=== PATIENT | female | born 1980 | race Caucasian/White ===

== ENCOUNTER 2021-08-06 20:28 | Emergency (ER) | payer BC ==
[2021-08-06] MEDS ORDERED: HYDROCODONE/APAP 10/325 TAB ONE (22:00)
--- NOTE | 2021-08-06 23:34 | EDPHYS ---
Physician Documentation [facility] Name: Bette Ames Age: 40 yrs Sex: Female : 1980 Arrival Date: 08/06/2021 Time: 20:34 Bed 9 Private MD: ED Physician Jey Guevara HPI: 08/06 23:28 This 40 yrs old Female presents to ER via Ambulatory with complaints of rn Finger Injury. 23:28 Mechanism of injury: " Jamming". Associated injuries: The patient sustained Right fifth rn digit of hand. 23:29 Onset: The symptoms/episode began/occurred yesterday. The patient has not experienced rn similar symptoms in the past. The patient has not recently seen a physician. Patient reports at work yesterday and jammed her finger while moving boxes. Denies crush injury. Reports sent to [facility] for work-related injury and told has cellulitis and given antibiotics. They were told x-rays were okay without fracture or dislocation. Still having significant pain to right fifth digit of hand. No fever. 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 dc2 Historical: - Allergies: 21:20 No Known Allergies; dc2 - Home Meds: 22:00 budesonide 160mcg oral cpER 1 cap once daily [Active]; levothyroxine 75 mcg cap 1 cap dc2 once daily (Last Dose: 08/06/2021 07:00) [Active]; metformin 500 mg Oral tab 1 tab daily for weight loss [Active]; Probiotic 10 billion cell oral cap daily [Active]; CoQ-10 200mg oral cap daily [Active]; Super B-50 Complex oral cap daily [Active]; Vitamin D-3 with Aloe 120-1,000-10 mg-unit-mg oral tab daily [Active]; multivitamin oral cap daily [Active]; - Immunization history:: Adult Immunizations up to date, Client reports receiving the Efrain \\T\\ Efrain single-dose vaccine. Date received July 09, 2021. - Social history:: Patient/guardian denies using alcohol, street drugs, tobacco products, Smoking status: Patient/guardian denies using alcohol, street drugs, IV drugs, tobacco products. - Family history:: not pertinent. - Hospitalizations: : No recent hospitalization is reported. - Coronavirus screen:: The patient has NOT traveled to [place] in the past 14 days. The patient has NOT had contact with known/suspected case of Coronavirus? Proceed with normal triage procedures. ROS: 23:29 Constitutional: Negative for fever, chills, and weight loss, MS/Extremity: Positive rn injury and swelling to right fifth finger Skin: Negative for injury, rash, and discoloration, Neuro: Mild tingling to right hand and throbbing pain. Exam: 23:29 Constitutional: This is a well developed, well nourished patient who is awake, alert, rn appears uncomfortable Skin: Warm, dry MS/ Extremity: Pulses equal, no cyanosis. Neurovascular intact. Painful flexion and extension of right fifth finger. No gross deformity. No fluctuance. No streaking proximally. No open wounds. Neuro: Awake and alert, GCS 15 Vital Signs: 21:10 BP 114 / 50; Pulse 67; Resp 19; Temp 98.2; Pulse Ox 100% ; Weight 86.18 kg; Height 5 dc2 ft. 0 in. (152.40 cm); Pain 10/10; 23:00 BP 108 / 53; Pulse 85; Resp 17; Temp 99.2(O); Pulse Ox 100% ; Pain 6/10; dc2 21:10 Body Mass Index 37.11 (86.18 kg, 152.40 cm) dc2 MDM: 21:25 Patient medically screened. rn 23:29 Differential diagnosis: extremity fracture. Data reviewed: vital signs, nurses notes, rn radiologic studies, plain films, and as a result, I will discharge patient. Counseling: I had a detailed discussion with the patient and/or guardian regarding: the historical points, exam findings, and any diagnostic results supporting the discharge/admit diagnosis, radiology results, the need for outpatient follow up, to return to the emergency department if symptoms worsen or persist or if there are any questions or concerns that arise at home. Response to treatment: the patient's symptoms have markedly improved after treatment, and as a result, I will discharge patient. Special discussion: I discussed with the patient/guardian in detail that at this point there is no indication for admission to the hospital. It is understood, however, that if the symptoms persist or worsen the patient needs to return immediately for re-evaluation. Further emergent ED testing is not indicated at this point in time. I discussed with the patient/guardian in detail the need to arrange with the PCP or specialist further outpatient testing, MRI. ED course: Patient markedly improved, after pain medication, sitting in bed sleeping. X-ray without gross fracture or dislocation. Discussion with patient regarding possible tendon or ligamentous injury and need for MRI if continues to have problems. Return precautions given and understood.. 08/06 21:31 Order name: XRAY Hand RIGHT 3 View rn Administered Medications: 21:37 Drug: Aroda (HYDROcodone-acetaminophen) 10 mg-325 mg 1 tabs Route: PO; ld1 22:11 Follow up: Response: No adverse reaction ld1 22:12 Follow up: Response: Pain is decreased dc2 Disposition Summary: 08/06/21 23:51 Discharge Ordered Location: Home(08/06/21 23:51) rn Problem: new(08/06/21 23:51) rn Symptoms: have improved(08/06/21 23:51) rn Condition: Stable(08/06/21 23:51) rn Diagnosis - Contusion of right little finger without damage to nail(08/06/21 23:51) rn - Other sprain of right little finger(08/06/21 23:51) rn Followup: rn - With: Private Physician - When: As needed - Reason: Recheck today's complaints, Re-evaluation by your physician Discharge Instructions: - Finger Sprain, Adult rn - Discharge Summary Sheet ld1 Forms: - Medication Reconciliation Form rn - Thank You Letter rn - Antibiotic assistant city attorney - Prescription Opioid Use rn - Work release form ld1 Signatures: Dispatcher [employer] EDJey Mendez MD MD rn Dibbern, Lauren, RN RN ld1 Virginia Treadwell RN RN dc2 Corrections: (The following items were deleted from the chart) 23:31 23:28 Associated injuries: The patient sustained Right fifth digit, rn rn 23:42 23:33 Home rn dc2 23:42 23:33 new rn dc2 23:42 23:33 have improved rn dc2 23:42 23:33 Stable rn dc2 23:42 23:33 Contusion of right little finger without damage to nail rn dc2 23:42 23:33 Other sprain of right little finger rn dc2
--- NOTE | 2021-08-06 23:34 | ER ---
Nurse's Notes [facility] Name: Bette Ames Age: 40 yrs Sex: Female : 1980 Arrival Date: 08/06/2021 Time: 20:34 Bed 9 Private MD: Diagnosis: Contusion of right little finger without damage to nail;Other sprain of right little finger Presentation: 08/06 21:10 Chief complaint: Patient states: I hurt my Right hand last night at work around 3am, dc2 went to clinic today where they did an x ray and told me it was cellulitis, now my fingers are swollen and the pinky is worse. 21:10 Coronavirus screen: Vaccine status: Patient reports receiving the 2nd dose of the covid dc2 vaccine. Date July 09, 2021 Client denies travel out of the [place] in the last 14 days. Ebola Screen: Patient negative for fever greater than or equal to 101.5 degrees Fahrenheit, and additional compatible Ebola Virus Disease symptoms Patient denies exposure to infectious person. Patient denies travel to an Ebola-affected area in the 21 days before illness onset. Risk Assessment: Do you want to hurt yourself or someone else? Patient reports no desire to harm self or others. Onset of symptoms was August 06, 2021 at 03:00. Care prior to arrival: Xray at previous clinic and finger splint. 21:10 Method Of Arrival: Ambulatory dc2 21:10 Acuity: CRISTELA 4 dc2 21:10 Initial Sepsis Screen: Does the patient have a suspected source of infection? No. dc2 Patient's initial sepsis screen is negative. 21:49 Initial Sepsis Screen: Does the patient meet any 2 criteria?. dc2 Triage Assessment: 21:20 General: Appears in no apparent distress. uncomfortable, obese, well groomed, well dc2 developed. Pain: Complains of pain in right hand and fingers starting to become numb with radiating pain up right arm 21:20 Neuro: No deficits noted. Musculoskeletal: Capillary refill < 3 seconds, is brisk, dc2 Range of motion: limited in right hand due to pain and swelling to 3rd 4th and 5th finger. Injury Description: " I was throwing some bottles of mayonaisse up on the shelf over my head and then it started hurting ". 21:20 General: Behavior is cooperative, anxious. 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 dc2 Historical: - Allergies: 21:20 No Known Allergies; dc2 - Home Meds: 22:00 budesonide 160mcg oral cpER 1 cap once daily [Active]; levothyroxine 75 mcg cap 1 cap dc2 once daily (Last Dose: 08/06/2021 07:00) [Active]; metformin 500 mg Oral tab 1 tab daily for weight loss [Active]; Probiotic 10 billion cell oral cap daily [Active]; CoQ-10 200mg oral cap daily [Active]; Super B-50 Complex oral cap daily [Active]; Vitamin D-3 with Aloe 120-1,000-10 mg-unit-mg oral tab daily [Active]; multivitamin oral cap daily [Active]; - Immunization history:: Adult Immunizations up to date, Client reports receiving the Efrain \\T\\ Efrain single-dose vaccine. Date received July 09, 2021. - Social history:: Patient/guardian denies using alcohol, street drugs, tobacco products, Smoking status: Patient/guardian denies using alcohol, street drugs, IV drugs, tobacco products. - Family history:: not pertinent. - Hospitalizations: : No recent hospitalization is reported. - Coronavirus screen:: The patient has NOT traveled to [place] in the past 14 days. The patient has NOT had contact with known/suspected case of Coronavirus? Proceed with normal triage procedures. Screenin:20 Fall Risk None identified. No fall in past 12 months (0 pts). No secondary diagnosis (0 dc2 pts). No IV (0 pts). Ambulatory Aid- None/Bed Rest/Nurse Assist (0 pts). Gait- Normal/Bed Rest/Wheelchair (0 pts) Mental Status- Oriented to own ability (0 pts). Total [place] Fall Scale indicates No Risk (0-24 pts). 21:45 Abuse screen: Denies threats or abuse. Denies injuries from another. Nutritional dc2 screening: No deficits noted. Tuberculosis screening: No symptoms or risk factors identified. Never had TB. Assessment: 21:10 General: Appears uncomfortable, obese, well groomed, Behavior is cooperative, anxious. dc2 Pain: Complains of pain in RIght hand with radiating pain down left arm. 21:10 Neuro: No deficits noted. Musculoskeletal: Circulation, motion, and sensation intact. dc2 Capillary refill < 3 seconds, is brisk, Range of motion: limited in right hand Swelling present in 3rd, 4th, 5th digits of right hand. Vital Signs: 21:10 BP 114 / 50; Pulse 67; Resp 19; Temp 98.2; Pulse Ox 100% ; Weight 86.18 kg; Height 5 dc2 ft. 0 in. (152.40 cm); Pain 10/10; 23:00 BP 108 / 53; Pulse 85; Resp 17; Temp 99.2(O); Pulse Ox 100% ; Pain 6/10; dc2 21:10 Body Mass Index 37.11 (86.18 kg, 152.40 cm) dc2 ED Course: 20:34 Patient arrived in ED. wm 21:10 Arm band placed on left wrist. dc2 21:10 Patient has correct armband on for positive identification. Bed in low position. Call dc2 light in reach. Side rails up X 1. Pulse ox on. NIBP on. 21:10 Bed in low position. Call light in reach. Side rails up X 1. Pulse ox on. NIBP on. dc2 encourage pt to elevate hand on overside table over a blanket. 21:17 Virginia Treadwell RN is Primary Nurse. dc2 21:25 Jey Guevara MD is Attending Physician. rn 21:42 Triage completed. dc2 22:00 X-ray(s) taken. dc2 22:09 No provider procedures requiring assistance completed. dc2 22:15 XRAY Hand RIGHT 3 View In Process Unspecified. EDMS 22:17 Awaiting radiology results. dc2 23:42 Patient did not have IV access during this emergency room visit. dc2 Administered Medications: 21:37 Drug: Byars (HYDROcodone-acetaminophen) 10 mg-325 mg 1 tabs Route: PO; ld1 22:11 Follow up: Response: No adverse reaction ld1 22:12 Follow up: Response: Pain is decreased dc2 Outcome: 23:33 Discharge ordered by . rn 23:42 Discharged to home ambulatory, with family. dc2 23:42 Condition: stable 23:42 Discharge instructions given to Instructed on Demonstrated understanding of instructions, follow-up care. 23:51 Discharge ordered by . rn 23:52 Patient left the ED. em Signatures: Dispatcher [employer] EDMS Muñoz Devin, RN RN Jey Guevara MD MD rn Dibbern, Lauren, RN RN [email or web address] Ninfa Maradiaga Denise RN RN dc2
[2021-08-07 00:17] VITALS: O2SAT 100
[2021-08-07 00:18] VITALS: BP 108/53; TEMP 99.2
--- NOTE | 2021-08-07 17:05 | RAD REPORT ---
EXAM DESCRIPTION: RAD - Hand Right 3 View - 08/06/2021 10:15 pm CLINICAL HISTORY: 40 years, Female, PAIN COMPARISON: None. FINDINGS: 3 X-ray views of the right hand (Frontal, lateral and oblique views) were performed. No areas of acute bony injuries were demonstrated. No gross articular or soft tissue abnormality is identified. There are no gross intraosseous lesions. No periosteal reaction were seen. IMPRESSION: No acute osseous abnormality is demonstrated. Electronically signed by: Wilton Moreno MD 08/06/2021 10:44 PM CDT Due to temporary technical issues with the PACS/Fluency reporting system, reports are being signed by the in house radiologists without review as a courtesy to insure prompt reporting. The interpreting radiologist is fully responsible for the content of the report.
== END 2021-08-06 23:52 | disposition home or self-care (01) ==
LOC: ER 20:28
DX: S63.696A Other sprain of right little finger, initial encounter (principal); W23.0XXA Caught, crushed, jammed, or pinched between moving objects, initial encounter
CPT/HCPCS: 99284